=== PATIENT | male | born 1955 ===

== ENCOUNTER 2023-02-06 21:56 | Inpatient (IN) | payer MEDICARE, BC ==
[~2023-02-06] VITALS: Ht 170.2 cm; Wt 85.3 kg
[2023-02-06 22:00] VITALS: BP 126/68; TEMP 98.2; O2SAT 98
[2023-02-06] MEDS ORDERED: DEXA4TAB PO ×2 (22:54→23:41)
[2023-02-06] MEDS ORDERED: LEVE500T83 PO (22:54)
[2023-02-06] MEDS ORDERED: FURO20TA4 PO ×2 (22:54→23:41)
[2023-02-06] MEDS ORDERED: ENOX40DI SQ ×2 (22:54→23:41)
[2023-02-06] MEDS ORDERED: METO25TA3 PO ×2 (22:54→23:41)
[2023-02-06] MEDS ORDERED: OMEP40CA21 PO ×2 (22:54→23:41)
[2023-02-06] MEDS ORDERED: ACET-2030 PO ×2 (22:54→23:41)
[2023-02-06] MEDS ORDERED: LEVE500T20 PO (23:41)
[2023-02-07 08:15] VITALS: BP 151/82; TEMP 98.6; O2SAT 96
[2023-02-07] MEDS ORDERED: DOCU100C36 PO (09:03)
[2023-02-07] MEDS ORDERED: CALC600T35 PO (09:03)
[2023-02-07] MEDS ORDERED: APIX5TAB PO (09:03)
[2023-02-07] MEDS ORDERED: DOCUSATE SODIUM 100 MG CAPSULE PO PRN (13:45)
[2023-02-07] MEDS: ACETAMINOPHEN ES 500 MG TABLET PO SCH ×2 (14:00→21:18)
[2023-02-07] MEDS ORDERED: ACETAMINOPHEN ES 500 MG TABLET- SA PATIENTS-PAIN ONLY PO SCH (14:00)
[2023-02-07 15:22] VITALS: BP 145/90; TEMP 97.8; O2SAT 95
[2023-02-07] MEDS: CALCIUM CARBONATE 600 MG TABLET PO SCH (16:27)
[2023-02-07] MEDS: levETIRAcetam 500 MG TABLET PO SCH (16:29)
[2023-02-07] MEDS ORDERED: Medication Not On Formulary EA (Omeprazole 40 MG) PO SCH (16:30)
[2023-02-07] MEDS: DEXAMETHASONE 4 MG TABLET PO SCH (17:06)
[2023-02-07] MEDS: METOPROLOL SUCCINATE XL 25 MG TAB.SR.24H PO SCH (17:06)
[2023-02-07 20:25] VITALS: BP 127/81; TEMP 97.6; O2SAT 95
[2023-02-08] MEDS: PANTOPRAZOLE SODIUM 40 MG TABLET.DR PO SCH (06:42)
[2023-02-08] MEDS: ACETAMINOPHEN ES 500 MG TABLET PO SCH ×3 (06:42→22:00)
[2023-02-08 07:30] LABS: BASOPHILS % (AUTO) 0.1 % (0.0-2.0); EOSINOPHILS % (AUTO) 0.1 % (0.0-7.0); HEMATOCRIT 39.1 % (36.7-47.1); HEMOGLOBIN 13.2 g/dL (12.5-16.3); LYMPHOCYTES % (AUTO) 14.9 % (20.5-51.5); MEAN CORPUSCULAR HEMOGLOBIN 32.7 uug (23.8-33.4); MEAN CORPUSCULAR HGB CONC 34 g/dL (32.5-36.3); MEAN CORPUSCULAR VOLUME 96.8 fL (73.0-96.2); MONOCYTES # (AUTO) 0.3 K/uL (0.1-1.30); MONOCYTES % (AUTO) 4.5 % (0.0-11.0); NEUTROPHILS # (AUTO) 5.5 K/uL (1.8-8.9); NEUTROPHILS % (AUTO) 80.4 % (38.5-71.5); PLATELET COUNT (AUTO) 134 K/uL (152-348); RED BLOOD CELL COUNT(AUTO) 4.04 MIL/uL (4.06-5.63); RED CELL DISTRIBUTION WIDTH 18.9 % (12.1-16.2); WHITE BLOOD COUNT (AUTO) 6.8 K/uL (3.6-10.2)
[2023-02-08 07:42] LABS: DIFFERENTIAL COMMENT 1
[2023-02-08 07:53] LABS: CALCIUM 8.7 mg/dL (8.5-10.1); CARBON DIOXIDE 30 mmol/L (21-32); CHLORIDE 103 mmol/L (98-107); CREATININE 0.6 mg/dL (0.6-1.3); GLUCOSE 190 mg/dL (74-106); SODIUM SERUM 142 mmol/L (136-145); UREA NITROGEN, BLOOD 16 mg/dL (7-18)
[2023-02-08 08:00] VITALS: BP 144/92; TEMP 97.5; O2SAT 97
[2023-02-08] MEDS ORDERED: ENOXAPARIN SODIUM 40 MG/0.4 ML DISP.SYRIN SQ SCH (09:00)
[2023-02-08] MEDS: FUROSEMIDE 20 MG TABLET PO SCH (09:27)
[2023-02-08] MEDS: CALCIUM CARBONATE 600 MG TABLET PO SCH (09:27)
[2023-02-08] MEDS: DEXAMETHASONE 4 MG TABLET PO SCH ×2 (09:27→17:31)
[2023-02-08] MEDS: levETIRAcetam 500 MG TABLET PO SCH ×2 (09:28→17:31)
[2023-02-08] MEDS ORDERED: REMEDY ESSENTIAL ZINC PASTE 113 GM TOP PRN (10:45)
[2023-02-08] MEDS: ENOXAPARIN SODIUM 40 MG/0.4 ML DISP.SYRIN SQ SCH (12:55)
[2023-02-08] MEDS: MEDIHONEY= THERAHONEY 1.5 OZ TUBE TOP SCH (14:18)
[2023-02-08 15:46] VITALS: BP 123/88; TEMP 97.5; O2SAT 96
[2023-02-08] MEDS: METOPROLOL SUCCINATE XL 25 MG TAB.SR.24H PO SCH (17:30)
[2023-02-08 20:00] VITALS: BP 124/80; TEMP 97.4; O2SAT 93
[2023-02-08] MEDS: REMEDY ESSENTIAL ZINC PASTE 113 GM TOP SCH (21:38)
[2023-02-09] MEDS: ACETAMINOPHEN ES 500 MG TABLET PO SCH ×3 (06:00→21:21)
[2023-02-09 06:52] VITALS: BP 108/70; TEMP 97.1; O2SAT 92
[2023-02-09] MEDS: PANTOPRAZOLE SODIUM 40 MG TABLET.DR PO SCH (07:11)
[2023-02-09 07:27] VITALS: BP 146/87; TEMP 98.4; O2SAT 91
[2023-02-09] MEDS: DEXAMETHASONE 4 MG TABLET PO SCH ×2 (08:03→17:18)
[2023-02-09] MEDS: FUROSEMIDE 20 MG TABLET PO SCH (08:03)
[2023-02-09] MEDS: levETIRAcetam 500 MG TABLET PO SCH ×2 (08:03→16:24)
[2023-02-09] MEDS: CALCIUM CARBONATE 600 MG TABLET PO SCH (08:03)
[2023-02-09] MEDS: ENOXAPARIN SODIUM 40 MG/0.4 ML DISP.SYRIN SQ SCH (08:07)
[2023-02-09] MEDS: MEDIHONEY= THERAHONEY 1.5 OZ TUBE TOP SCH (08:20)
[2023-02-09] MEDS: REMEDY ESSENTIAL ZINC PASTE 113 GM TOP SCH ×2 (08:21→22:02)
[2023-02-09 15:19] VITALS: BP 128/82; TEMP 97.5; O2SAT 92
[2023-02-09] MEDS: METOPROLOL SUCCINATE XL 25 MG TAB.SR.24H PO SCH (17:18)
[2023-02-09 20:00] VITALS: BP 132/88; TEMP 98.1; O2SAT 98
[2023-02-10 04:00] VITALS: BP 132/88; TEMP 98.1; O2SAT 95
[2023-02-10] MEDS: PANTOPRAZOLE SODIUM 40 MG TABLET.DR PO SCH (06:07)
[2023-02-10] MEDS: ACETAMINOPHEN ES 500 MG TABLET PO SCH ×4 (06:07→21:49)
[2023-02-10 08:00] VITALS: BP 147/85; TEMP 97.5; O2SAT 95
[2023-02-10] MEDS: CALCIUM CARBONATE 600 MG TABLET PO SCH (08:46)
[2023-02-10] MEDS: FUROSEMIDE 20 MG TABLET PO SCH (08:46)
[2023-02-10] MEDS: DEXAMETHASONE 4 MG TABLET PO SCH ×2 (08:46→17:35)
[2023-02-10] MEDS: APIXABAN 5 MG TABLET PO SCH ×2 (08:48→16:49)
[2023-02-10] MEDS: MEDIHONEY= THERAHONEY 1.5 OZ TUBE TOP SCH (08:49)
[2023-02-10] MEDS: REMEDY ESSENTIAL ZINC PASTE 113 GM TOP SCH ×2 (09:05→21:47)
[2023-02-10 16:44] VITALS: BP 144/75; TEMP 97.7; O2SAT 97
[2023-02-10] MEDS: METOPROLOL SUCCINATE XL 25 MG TAB.SR.24H PO SCH (17:35)
[2023-02-10 20:00] VITALS: BP 127/88; TEMP 97.4; O2SAT 98
[2023-02-11 04:00] VITALS: BP 134/87; TEMP 97.4; O2SAT 94
[2023-02-11] MEDS: PANTOPRAZOLE SODIUM 40 MG TABLET.DR PO SCH (06:23)
[2023-02-11] MEDS: ACETAMINOPHEN ES 500 MG TABLET PO SCH ×3 (06:23→21:22)
[2023-02-11 08:00] VITALS: BP 143/74; TEMP 98; O2SAT 97
[2023-02-11] MEDS: FUROSEMIDE 20 MG TABLET PO SCH (09:04)
[2023-02-11] MEDS: DEXAMETHASONE 4 MG TABLET PO SCH ×2 (09:04→17:01)
[2023-02-11] MEDS: CALCIUM CARBONATE 600 MG TABLET PO SCH (09:04)
[2023-02-11] MEDS: APIXABAN 5 MG TABLET PO SCH ×2 (09:05→16:54)
[2023-02-11] MEDS: MEDIHONEY= THERAHONEY 1.5 OZ TUBE TOP SCH (09:06)
[2023-02-11] MEDS: REMEDY ESSENTIAL ZINC PASTE 113 GM TOP SCH ×2 (09:06→21:27)
[2023-02-11 16:00] VITALS: BP 122/76; TEMP 97.6; O2SAT 97
[2023-02-11] MEDS: METOPROLOL SUCCINATE XL 25 MG TAB.SR.24H PO SCH (17:01)
[2023-02-11 20:00] VITALS: BP 142/88; TEMP 97.7; O2SAT 95
[2023-02-12 04:00] VITALS: BP 134/93; TEMP 97.6; O2SAT 96
[2023-02-12] MEDS: PANTOPRAZOLE SODIUM 40 MG TABLET.DR PO SCH (06:08)
[2023-02-12] MEDS: ACETAMINOPHEN ES 500 MG TABLET PO SCH ×3 (06:08→22:05)
[2023-02-12 08:00] VITALS: BP 149/92; TEMP 97.7; O2SAT 96
[2023-02-12] MEDS: CALCIUM CARBONATE 600 MG TABLET PO SCH (08:52)
[2023-02-12] MEDS: APIXABAN 5 MG TABLET PO SCH ×2 (08:53→17:23)
[2023-02-12] MEDS: FUROSEMIDE 20 MG TABLET PO SCH (08:55)
[2023-02-12] MEDS: DEXAMETHASONE 4 MG TABLET PO SCH ×2 (08:55→17:24)
[2023-02-12] MEDS: REMEDY ESSENTIAL ZINC PASTE 113 GM TOP SCH ×2 (08:55→22:12)
[2023-02-12] MEDS: MEDIHONEY= THERAHONEY 1.5 OZ TUBE TOP SCH (09:06)
[2023-02-12 10:00] VITALS: BP 132/78
[2023-02-12 15:20] VITALS: BP 139/81
[2023-02-12 16:00] VITALS: BP 104/65; TEMP 97.7; O2SAT 95
[2023-02-12] MEDS: METOPROLOL SUCCINATE XL 25 MG TAB.SR.24H PO SCH (17:23)
[2023-02-12 20:00] VITALS: BP 133/88; TEMP 98; O2SAT 97
[2023-02-13 04:00] VITALS: BP 137/97; TEMP 98.2; O2SAT 95
[2023-02-13] MEDS: PANTOPRAZOLE SODIUM 40 MG TABLET.DR PO SCH (06:10)
[2023-02-13] MEDS: ACETAMINOPHEN ES 500 MG TABLET PO SCH ×3 (06:10→22:27)
[2023-02-13 08:22] VITALS: BP 138/90; TEMP 98.1; O2SAT 96
[2023-02-13] MEDS: FUROSEMIDE 20 MG TABLET PO SCH (08:40)
[2023-02-13] MEDS: APIXABAN 5 MG TABLET PO SCH ×2 (08:40→17:13)
[2023-02-13] MEDS: CALCIUM CARBONATE 600 MG TABLET PO SCH (08:41)
[2023-02-13] MEDS: DEXAMETHASONE 4 MG TABLET PO SCH ×2 (08:41→17:12)
[2023-02-13] MEDS: MEDIHONEY= THERAHONEY 1.5 OZ TUBE TOP SCH (08:41)
[2023-02-13] MEDS: REMEDY ESSENTIAL ZINC PASTE 113 GM TOP SCH ×2 (08:41→21:00)
[2023-02-13 16:16] VITALS: BP 138/86; TEMP 98; O2SAT 97
[2023-02-13] MEDS: METOPROLOL SUCCINATE XL 25 MG TAB.SR.24H PO SCH (17:12)
[2023-02-13 20:07] VITALS: BP 125/72; TEMP 97.9; O2SAT 95
[2023-02-14 05:18] VITALS: BP 133/78; TEMP 97.7; O2SAT 93
[2023-02-14] MEDS: PANTOPRAZOLE SODIUM 40 MG TABLET.DR PO SCH (06:06)
[2023-02-14] MEDS: ACETAMINOPHEN ES 500 MG TABLET PO SCH ×3 (06:07→22:09)
[2023-02-14 08:20] VITALS: BP 151/89; TEMP 97.5; O2SAT 96
[2023-02-14] MEDS: CALCIUM CARBONATE 600 MG TABLET PO SCH (09:48)
[2023-02-14] MEDS: FUROSEMIDE 20 MG TABLET PO SCH (09:49)
[2023-02-14] MEDS: APIXABAN 5 MG TABLET PO SCH ×2 (09:50→17:06)
[2023-02-14] MEDS: DEXAMETHASONE 4 MG TABLET PO SCH ×2 (09:51→17:06)
[2023-02-14] MEDS: MEDIHONEY= THERAHONEY 1.5 OZ TUBE TOP SCH (09:52)
[2023-02-14] MEDS: REMEDY ESSENTIAL ZINC PASTE 113 GM TOP SCH ×2 (09:52→21:17)
[2023-02-14 16:32] VITALS: BP 135/88; TEMP 97.8; O2SAT 96
[2023-02-14] MEDS: METOPROLOL SUCCINATE XL 25 MG TAB.SR.24H PO SCH (17:09)
[2023-02-14 20:10] VITALS: BP 145/92; TEMP 97.6; O2SAT 96
[2023-02-15 04:18] VITALS: BP 134/80; TEMP 97.5; O2SAT 96
[2023-02-15] MEDS ORDERED: ACETAMINOPHEN ES 500 MG TABLET ONE (06:22)
[2023-02-15] MEDS: ACETAMINOPHEN ES 500 MG TABLET PO SCH ×3 (06:25→22:05)
[2023-02-15] MEDS: PANTOPRAZOLE SODIUM 40 MG TABLET.DR PO SCH (06:31)
[2023-02-15 08:00] VITALS: BP 154/87; TEMP 97.4; O2SAT 94
[2023-02-15] MEDS: DEXAMETHASONE 4 MG TABLET PO SCH ×2 (08:31→17:00)
[2023-02-15] MEDS: CALCIUM CARBONATE 600 MG TABLET PO SCH (08:31)
[2023-02-15] MEDS: FUROSEMIDE 20 MG TABLET PO SCH (08:31)
[2023-02-15] MEDS: APIXABAN 5 MG TABLET PO SCH ×2 (08:32→16:53)
[2023-02-15] MEDS: REMEDY ESSENTIAL ZINC PASTE 113 GM TOP SCH ×2 (08:32→20:58)
[2023-02-15] MEDS: MEDIHONEY= THERAHONEY 1.5 OZ TUBE TOP SCH (08:32)
[2023-02-15 16:00] VITALS: BP 134/82; TEMP 98.8; O2SAT 95
[2023-02-15] MEDS: METOPROLOL SUCCINATE XL 25 MG TAB.SR.24H PO SCH (17:00)
[2023-02-16 00:20] VITALS: BP 140/88; TEMP 97.1; O2SAT 95
[2023-02-16 04:20] VITALS: BP 121/83; TEMP 97; O2SAT 99
[2023-02-16] MEDS: ACETAMINOPHEN ES 500 MG TABLET PO SCH ×3 (06:00→22:26)
[2023-02-16] MEDS: PANTOPRAZOLE SODIUM 40 MG TABLET.DR PO SCH (07:12)
[2023-02-16 07:39] VITALS: BP 155/83; TEMP 98.4; O2SAT 93
[2023-02-16] MEDS: APIXABAN 5 MG TABLET PO SCH ×2 (09:10→17:10)
[2023-02-16] MEDS: DEXAMETHASONE 4 MG TABLET PO SCH (09:11)
[2023-02-16] MEDS: CALCIUM CARBONATE 600 MG TABLET PO SCH (09:11)
[2023-02-16] MEDS: FUROSEMIDE 20 MG TABLET PO SCH (09:11)
[2023-02-16] MEDS: REMEDY ESSENTIAL ZINC PASTE 113 GM TOP SCH ×2 (09:12→20:51)
[2023-02-16] MEDS: MEDIHONEY= THERAHONEY 1.5 OZ TUBE TOP SCH (09:14)
[2023-02-16 15:09] VITALS: BP 118/85; TEMP 98.2; O2SAT 96
[2023-02-16] MEDS: DEXAMETHASONE 1 MG TABLET PO SCH (17:09)
[2023-02-16] MEDS: METOPROLOL SUCCINATE XL 25 MG TAB.SR.24H PO SCH (17:11)
[2023-02-16 20:11] VITALS: BP 137/78; TEMP 98.4; O2SAT 96
[2023-02-17 04:17] VITALS: BP 123/76; TEMP 98.4; O2SAT 96
[2023-02-17] MEDS: PANTOPRAZOLE SODIUM 40 MG TABLET.DR PO SCH (06:04)
[2023-02-17] MEDS: ACETAMINOPHEN ES 500 MG TABLET PO SCH (06:04)
[2023-02-17 07:19] LABS: BASOPHILS % (AUTO) 0.1 % (0.0-2.0); EOSINOPHILS % (AUTO) 0.1 % (0.0-7.0); HEMATOCRIT 39.1 % (36.7-47.1); HEMOGLOBIN 13.3 g/dL (12.5-16.3); LYMPHOCYTES # (AUTO) 1.2 K/uL (0.8-4.8); LYMPHOCYTES % (AUTO) 15.1 % (20.5-51.5); MEAN CORPUSCULAR HEMOGLOBIN 32.4 uug (23.8-33.4); MEAN CORPUSCULAR HGB CONC 34 g/dL (32.5-36.3); MEAN CORPUSCULAR VOLUME 94.9 fL (73.0-96.2); MONOCYTES # (AUTO) 0.4 K/uL (0.1-1.30); MONOCYTES % (AUTO) 5.6 % (0.0-11.0); NEUTROPHILS # (AUTO) 6.3 K/uL (1.8-8.9); NEUTROPHILS % (AUTO) 79.1 % (38.5-71.5); PLATELET COUNT (AUTO) 188 K/uL (152-348); RED BLOOD CELL COUNT(AUTO) 4.12 MIL/uL (4.06-5.63); RED CELL DISTRIBUTION WIDTH 18.6 % (12.1-16.2); WHITE BLOOD COUNT (AUTO) 7.9 K/uL (3.6-10.2)
[2023-02-17 07:32] LABS: DIFFERENTIAL COMMENT 1
[2023-02-17 08:00] VITALS: BP 144/94; TEMP 98.1; O2SAT 98
[2023-02-17 08:22] LABS: ALBUMIN 2.9 g/dL (3.4-5.0); BILIRUBIN,TOTAL 0.5 mg/dL (0.2-1.0); CALCIUM 9.1 mg/dL (8.5-10.1); CREATININE 0.8 mg/dL (0.6-1.3); MAGNESIUM 2.3 mg/dL (1.8-2.4); PHOSPHOROUS 3.7 mg/dL (2.5-4.9); POTASSIUM 4.1 mmol/L (3.5-5.1); TOTAL PROTEIN, SERUM 5.7 g/dL (6.4-8.2)
[2023-02-17] MEDS: CALCIUM CARBONATE 600 MG TABLET PO SCH (08:29)
[2023-02-17] MEDS: APIXABAN 5 MG TABLET PO SCH ×2 (08:30→17:08)
[2023-02-17] MEDS: FUROSEMIDE 20 MG TABLET PO SCH (08:30)
[2023-02-17] MEDS: DEXAMETHASONE 1 MG TABLET PO SCH ×2 (08:31→17:07)
[2023-02-17] MEDS: REMEDY ESSENTIAL ZINC PASTE 113 GM TOP SCH ×2 (08:32→21:16)
[2023-02-17] MEDS: MEDIHONEY= THERAHONEY 1.5 OZ TUBE TOP SCH (08:33)
[2023-02-17] MEDS ORDERED: ACETAMINOPHEN ES 500 MG TABLET PO PRN (09:15)
[2023-02-17 10:30] LABS: THYROID STIMULATING HORMONE 0.962 mIU/mL (0.358-3.740)
[2023-02-17 11:32] VITALS: BP 119/74
[2023-02-17 16:11] VITALS: BP 123/78; TEMP 98.1; O2SAT 98
[2023-02-17] MEDS: METOPROLOL SUCCINATE XL 25 MG TAB.SR.24H PO SCH (17:07)
[2023-02-17 20:00] VITALS: BP 137/89; TEMP 98; O2SAT 95
[2023-02-17] MEDS ORDERED: DEXTROSE 50% 50 ML DISP.SYRIN IV PRN (21:30)
[2023-02-18 04:00] VITALS: BP 142/95; TEMP 97.5; O2SAT 93
[2023-02-18 04:52] VITALS: BP 142/95; TEMP 97.5; O2SAT 93
[2023-02-18] MEDS: PANTOPRAZOLE SODIUM 40 MG TABLET.DR PO SCH (06:19)
[2023-02-18] MEDS: BLOOD SUGAR DIAGNOSTIC 1 EACH STRIP VI SCH ×4 (06:39→21:12)
[2023-02-18 08:00] VITALS: BP 136/92; TEMP 98; O2SAT 98
[2023-02-18] MEDS: INSULIN REGULAR, HUMAN 300 UNIT/3 ML VIAL SQ PRN ×4 (08:08→21:32)
[2023-02-18] MEDS: CALCIUM CARBONATE 600 MG TABLET PO SCH (08:09)
[2023-02-18] MEDS: APIXABAN 5 MG TABLET PO SCH ×2 (08:09→16:18)
[2023-02-18] MEDS: FUROSEMIDE 20 MG TABLET PO SCH (08:10)
[2023-02-18] MEDS: MEDIHONEY= THERAHONEY 1.5 OZ TUBE TOP SCH (08:10)
[2023-02-18] MEDS: REMEDY ESSENTIAL ZINC PASTE 113 GM TOP SCH ×2 (08:11→21:13)
[2023-02-18] MEDS: DEXAMETHASONE 1 MG TABLET PO SCH ×2 (08:54→17:21)
[2023-02-18 16:00] VITALS: BP 142/101; TEMP 98.4; O2SAT 97
[2023-02-18] MEDS: METOPROLOL SUCCINATE XL 25 MG TAB.SR.24H PO SCH (18:27)
[2023-02-18 20:00] VITALS: BP 120/72; TEMP 98.5; O2SAT 95
[2023-02-18] MEDS: ATORVASTATIN 20 MG TABLET PO SCH (21:12)
[2023-02-18] MEDS ORDERED: INSULIN GLARGINE,HUM 300 UNITS/3 ML CARTRIDGE SQ SCH (22:30)
[2023-02-19 04:00] VITALS: BP 146/81; TEMP 98.2; O2SAT 96
[2023-02-19] MEDS: PANTOPRAZOLE SODIUM 40 MG TABLET.DR PO SCH (06:24)
[2023-02-19] MEDS: BLOOD SUGAR DIAGNOSTIC 1 EACH STRIP VI SCH ×4 (06:40→20:24)
[2023-02-19 07:58] VITALS: BP 146/90; TEMP 98.6; O2SAT 98
[2023-02-19] MEDS: DEXAMETHASONE 1 MG TABLET PO SCH ×2 (09:56→17:26)
[2023-02-19] MEDS: FUROSEMIDE 20 MG TABLET PO SCH (09:56)
[2023-02-19] MEDS: CALCIUM CARBONATE 600 MG TABLET PO SCH (09:56)
[2023-02-19] MEDS: APIXABAN 5 MG TABLET PO SCH ×2 (09:57→17:28)
[2023-02-19] MEDS: REMEDY ESSENTIAL ZINC PASTE 113 GM TOP SCH ×2 (09:58→20:31)
[2023-02-19] MEDS: MEDIHONEY= THERAHONEY 1.5 OZ TUBE TOP SCH (09:58)
[2023-02-19] MEDS: INSULIN REGULAR, HUMAN 300 UNIT/3 ML VIAL SQ PRN ×3 (12:07→20:26)
[2023-02-19 15:07] VITALS: BP 147/100; TEMP 98.2; O2SAT 98
[2023-02-19] MEDS: METOPROLOL SUCCINATE XL 25 MG TAB.SR.24H PO SCH (17:29)
[2023-02-19 20:00] VITALS: BP 133/95; TEMP 98.7; O2SAT 96
[2023-02-19] MEDS: ATORVASTATIN 20 MG TABLET PO SCH (20:24)
[2023-02-19] MEDS ORDERED: INSULIN GLARGINE,HUM 300 UNITS/3 ML CARTRIDGE SQ SCH (21:00)
[2023-02-20 04:00] VITALS: BP 109/69; TEMP 98.6; O2SAT 95
[2023-02-20] MEDS: BLOOD SUGAR DIAGNOSTIC 1 EACH STRIP VI SCH ×4 (06:07→21:07)
[2023-02-20] MEDS: PANTOPRAZOLE SODIUM 40 MG TABLET.DR PO SCH (06:18)
[2023-02-20 07:27] LABS: ALBUMIN 2.9 g/dL (3.4-5.0); BILIRUBIN,TOTAL 0.7 mg/dL (0.2-1.0); CALCIUM 9.1 mg/dL (8.5-10.1); CREATININE 0.9 mg/dL (0.6-1.3); MAGNESIUM 2.4 mg/dL (1.8-2.4); PHOSPHOROUS 3.7 mg/dL (2.5-4.9); POTASSIUM 3.8 mmol/L (3.5-5.1); TOTAL PROTEIN, SERUM 5.7 g/dL (6.4-8.2)
[2023-02-20 07:39] LABS: BASOPHILS % (AUTO) 0.1 % (0.0-2.0); DIFFERENTIAL COMMENT 0; EOSINOPHILS % (AUTO) 0.1 % (0.0-7.0); HEMATOCRIT 42.6 % (36.7-47.1); HEMOGLOBIN 14.2 g/dL (12.5-16.3); LYMPHOCYTES # (AUTO) 1.3 K/uL (0.8-4.8); LYMPHOCYTES % (AUTO) 13.6 % (20.5-51.5); MEAN CORPUSCULAR HEMOGLOBIN 31.9 uug (23.8-33.4); MEAN CORPUSCULAR HGB CONC 33 g/dL (32.5-36.3); MEAN CORPUSCULAR VOLUME 95.3 fL (73.0-96.2); MONOCYTES # (AUTO) 0.6 K/uL (0.1-1.30); MONOCYTES % (AUTO) 6.4 % (0.0-11.0); NEUTROPHILS # (AUTO) 7.7 K/uL (1.8-8.9); NEUTROPHILS % (AUTO) 79.8 % (38.5-71.5); PLATELET COUNT (AUTO) 164 K/uL (152-348); RED BLOOD CELL COUNT(AUTO) 4.47 MIL/uL (4.06-5.63); RED CELL DISTRIBUTION WIDTH 18.7 % (12.1-16.2); WHITE BLOOD COUNT (AUTO) 9.7 K/uL (3.6-10.2)
[2023-02-20] MEDS: INSULIN REGULAR, HUMAN 300 UNIT/3 ML VIAL SQ PRN ×4 (08:35→21:14)
[2023-02-20] MEDS: DEXAMETHASONE 1 MG TABLET PO SCH ×2 (08:36→17:04)
[2023-02-20] MEDS: CALCIUM CARBONATE 600 MG TABLET PO SCH (08:36)
[2023-02-20] MEDS: FUROSEMIDE 20 MG TABLET PO SCH (08:36)
[2023-02-20] MEDS: APIXABAN 5 MG TABLET PO SCH ×2 (08:36→17:04)
[2023-02-20] MEDS: MEDIHONEY= THERAHONEY 1.5 OZ TUBE TOP SCH (08:39)
[2023-02-20] MEDS: REMEDY ESSENTIAL ZINC PASTE 113 GM TOP SCH ×2 (08:39→21:07)
[2023-02-20 10:00] VITALS: TEMP 97.2
[2023-02-20] MEDS: ONDANSETRON HCL 4 MG TABLET PO PRN (15:50)
[2023-02-20 16:15] VITALS: TEMP 97.2
[2023-02-20] MEDS: METOPROLOL TARTRATE 25 MG TABLET PO SCH (18:36)
[2023-02-20 20:15] VITALS: BP 163/94; TEMP 98.3; O2SAT 92
[2023-02-20] MEDS: ATORVASTATIN 20 MG TABLET PO SCH (20:57)
[2023-02-20] MEDS: INSULIN GLARGINE,HUM 300 UNITS/3 ML CARTRIDGE SQ SCH (21:05)
[2023-02-21 04:50] VITALS: BP 151/95; TEMP 98.3; O2SAT 94
[2023-02-21] MEDS: PANTOPRAZOLE SODIUM 40 MG TABLET.DR PO SCH (06:26)
[2023-02-21] MEDS: BLOOD SUGAR DIAGNOSTIC 1 EACH STRIP VI SCH ×4 (06:43→20:54)
[2023-02-21] MEDS: FUROSEMIDE 20 MG TABLET PO SCH (09:07)
[2023-02-21] MEDS: CALCIUM CARBONATE 600 MG TABLET PO SCH (09:07)
[2023-02-21] MEDS: APIXABAN 5 MG TABLET PO SCH ×2 (09:07→16:34)
[2023-02-21] MEDS: DEXAMETHASONE 1 MG TABLET PO SCH ×2 (09:08→16:32)
[2023-02-21] MEDS: MEDIHONEY= THERAHONEY 1.5 OZ TUBE TOP SCH (09:14)
[2023-02-21] MEDS: REMEDY ESSENTIAL ZINC PASTE 113 GM TOP SCH ×2 (09:15→20:54)
[2023-02-21] MEDS: INSULIN REGULAR, HUMAN 300 UNIT/3 ML VIAL SQ PRN ×3 (11:40→20:58)
[2023-02-21 16:00] VITALS: BP_SYST 102; BP_SYST 142; BP_DIAS 63; BP_DIAS 92; TEMP 97.8; O2SAT 95
[2023-02-21] MEDS: METOPROLOL TARTRATE 25 MG TABLET PO SCH (17:04)
[2023-02-21 20:00] VITALS: BP 131/90; TEMP 98.2; O2SAT 96
[2023-02-21] MEDS: ATORVASTATIN 20 MG TABLET PO SCH (20:43)
[2023-02-21] MEDS: INSULIN GLARGINE,HUM 300 UNITS/3 ML CARTRIDGE SQ SCH (20:50)
[2023-02-21 23:46] VITALS: BP 132/103; TEMP 98.2; O2SAT 98
[2023-02-22] VITALS (7 sets, daily range): BP systolic 123–150; BP diastolic 62–103; TEMP 97.6–98.6; O2SAT 94–98
[2023-02-22] MEDS: hydrALAZINE HCL 25 MG TABLET PO PRN ×2 (04:58→21:13)
[2023-02-22] MEDS: PANTOPRAZOLE SODIUM 40 MG TABLET.DR PO SCH (06:38)
[2023-02-22] MEDS: BLOOD SUGAR DIAGNOSTIC 1 EACH STRIP VI SCH ×4 (06:44→21:13)
[2023-02-22] MEDS: DEXAMETHASONE 1 MG TABLET PO SCH ×2 (09:03→17:13)
[2023-02-22] MEDS: FUROSEMIDE 20 MG TABLET PO SCH (09:03)
[2023-02-22] MEDS: CALCIUM CARBONATE 600 MG TABLET PO SCH (09:04)
[2023-02-22] MEDS: APIXABAN 5 MG TABLET PO SCH ×2 (09:09→17:12)
[2023-02-22] MEDS: MEDIHONEY= THERAHONEY 1.5 OZ TUBE TOP SCH (09:15)
[2023-02-22] MEDS: REMEDY ESSENTIAL ZINC PASTE 113 GM TOP SCH ×2 (09:16→21:16)
[2023-02-22] MEDS: INSULIN REGULAR, HUMAN 300 UNIT/3 ML VIAL SQ PRN ×4 (09:28→21:15)
[2023-02-22] MEDS: PROTEIN SUPPLEMENT (PROSTAT) 30 ML LIQUID PO SCH (17:13)
[2023-02-22] MEDS: METOPROLOL TARTRATE 25 MG TABLET PO SCH (17:18)
[2023-02-22] MEDS: ATORVASTATIN 20 MG TABLET PO SCH (21:12)
[2023-02-22] MEDS: INSULIN GLARGINE,HUM 300 UNITS/3 ML CARTRIDGE SQ SCH (21:16)
[2023-02-23 04:20] VITALS: BP 143/96; TEMP 98.4; O2SAT 92
[2023-02-23] MEDS: PANTOPRAZOLE SODIUM 40 MG TABLET.DR PO SCH (06:24)
[2023-02-23] MEDS: BLOOD SUGAR DIAGNOSTIC 1 EACH STRIP VI SCH ×4 (07:28→20:40)
[2023-02-23 07:52] VITALS: BP 137/86; TEMP 97.6; O2SAT 95
[2023-02-23] MEDS: DEXAMETHASONE 1 MG TABLET PO SCH ×2 (08:23→17:27)
[2023-02-23] MEDS: CALCIUM CARBONATE 600 MG TABLET PO SCH (08:24)
[2023-02-23] MEDS: INSULIN REGULAR, HUMAN 300 UNIT/3 ML VIAL SQ PRN ×4 (08:24→21:02)
[2023-02-23] MEDS: APIXABAN 5 MG TABLET PO SCH ×2 (08:24→17:28)
[2023-02-23] MEDS: FUROSEMIDE 20 MG TABLET PO SCH (08:24)
[2023-02-23] MEDS: REMEDY ESSENTIAL ZINC PASTE 113 GM TOP SCH ×2 (08:25→20:42)
[2023-02-23] MEDS: PROTEIN SUPPLEMENT (PROSTAT) 30 ML LIQUID PO SCH ×2 (08:25→17:28)
[2023-02-23] MEDS: MEDIHONEY= THERAHONEY 1.5 OZ TUBE TOP SCH (08:26)
[2023-02-23] MEDS ORDERED: BISACODYL 10 MG SUPP.RECT RC ONE (13:45)
[2023-02-23 15:52] VITALS: BP 119/86; TEMP 97.6; O2SAT 97
[2023-02-23] MEDS: METOPROLOL TARTRATE 25 MG TABLET PO SCH (17:27)
[2023-02-23 20:11] VITALS: BP 142/88; TEMP 98.2; O2SAT 96
[2023-02-23] MEDS: ATORVASTATIN 20 MG TABLET PO SCH ×2 (20:34→20:58)
[2023-02-23] MEDS: INSULIN GLARGINE,HUM 300 UNITS/3 ML CARTRIDGE SQ SCH (21:03)
[2023-02-24 04:10] VITALS: BP 153/90; TEMP 97.4; O2SAT 97
[2023-02-24] MEDS: PANTOPRAZOLE SODIUM 40 MG TABLET.DR PO SCH (06:37)
[2023-02-24] MEDS: BLOOD SUGAR DIAGNOSTIC 1 EACH STRIP VI SCH ×4 (06:46→20:27)
[2023-02-24 08:00] VITALS: BP 126/87; TEMP 97.5; O2SAT 97
[2023-02-24] MEDS: PROTEIN SUPPLEMENT (PROSTAT) 30 ML LIQUID PO SCH ×2 (08:49→16:39)
[2023-02-24] MEDS: DEXAMETHASONE 1 MG TABLET PO SCH ×2 (09:47→17:23)
[2023-02-24] MEDS: CALCIUM CARBONATE 600 MG TABLET PO SCH (09:47)
[2023-02-24] MEDS: APIXABAN 5 MG TABLET PO SCH ×2 (09:49→16:56)
[2023-02-24] MEDS: FUROSEMIDE 20 MG TABLET PO SCH (09:49)
[2023-02-24 11:51] VITALS: BP 147/89; TEMP 97.5; O2SAT 95
[2023-02-24 11:51] LABS: *BILIRUBIN,URIN NEGATIVE (NEGATIVE); *CLARITY,URINE CLEAR (CLEAR); *COLOR,URINE YELLOW (YELLOW); *KETONES,URINE NEGATIVE (NEGATIVE); *PROTEIN,URINE NEGATIVE (NEGATIVE); *UROBILINOGEN,URINE 0.2 E.U./dl (NORMAL); LEUKOCYTE ESTERASE ,URINE NEGATIVE (NEGATIVE); NITRITE, URINE NEGATIVE (NEGATIVE); UGLUCOSE NEGATIVE (NEGATIVE)
[2023-02-24 11:57] LABS: *BLOOD, URINE TRACE (NEGATIVE)
[2023-02-24 12:10] LABS: BASOPHILS % (AUTO) 0.3 % (0.0-2.0); DIFFERENTIAL COMMENT 0; EOSINOPHILS % (AUTO) 0.1 % (0.0-7.0); HEMATOCRIT 42.2 % (36.7-47.1); HEMOGLOBIN 14.3 g/dL (12.5-16.3); LYMPHOCYTES % (AUTO) 12.7 % (20.5-51.5); MEAN CORPUSCULAR HEMOGLOBIN 31.9 uug (23.8-33.4); MEAN CORPUSCULAR HGB CONC 34 g/dL (32.5-36.3); MEAN CORPUSCULAR VOLUME 94.2 fL (73.0-96.2); MONOCYTES # (AUTO) 0.7 K/uL (0.1-1.30); MONOCYTES % (AUTO) 8.2 % (0.0-11.0); NEUTROPHILS # (AUTO) 6.4 K/uL (1.8-8.9); NEUTROPHILS % (AUTO) 78.7 % (38.5-71.5); PLATELET COUNT (AUTO) 156 K/uL (152-348); RED BLOOD CELL COUNT(AUTO) 4.48 MIL/uL (4.06-5.63); RED CELL DISTRIBUTION WIDTH 18.5 % (12.1-16.2); WHITE BLOOD COUNT (AUTO) 8.1 K/uL (3.6-10.2)
[2023-02-24 12:12] LABS: CALCIUM 8.8 mg/dL (8.5-10.1); CREATININE 0.8 mg/dL (0.6-1.3); POTASSIUM 3.2 mmol/L (3.5-5.1)
[2023-02-24 12:18] LABS: ALBUMIN 2.8 g/dL (3.4-5.0); TOTAL PROTEIN, SERUM 5.8 g/dL (6.4-8.2)
[2023-02-24] MEDS: hydrALAZINE HCL 25 MG TABLET PO PRN (12:41)
[2023-02-24] MEDS: INSULIN REGULAR, HUMAN 300 UNIT/3 ML VIAL SQ PRN ×2 (12:45→20:28)
[2023-02-24] MEDS ORDERED: POTASSIUM CHLORIDE 20 MEQ POWDER PACKET PO ONE (13:45)
[2023-02-24 15:10] LABS: BACTERIA,URINE FEW /HPF (NONE SEEN); RBC,URINE 0-3 /HPF (0-3); SQUAMOUS EPITHELIAL CELL,UR FEW /HPF (NONE SEEN); WBC,URINE 0-3 /HPF (0-3); YEAST,URINE FEW /HPF (NONE SEEN)
[2023-02-24] MEDS ORDERED: BISACODYL 10 MG SUPP.RECT RC ONE (15:15)
[2023-02-24 16:00] VITALS: BP 118/73; TEMP 97.5; O2SAT 95
[2023-02-24] MEDS: MEDIHONEY= THERAHONEY 1.5 OZ TUBE TOP SCH (16:39)
[2023-02-24] MEDS: REMEDY ESSENTIAL ZINC PASTE 113 GM TOP SCH ×2 (16:39→20:28)
[2023-02-24] MEDS: METOPROLOL TARTRATE 25 MG TABLET PO SCH (17:24)
[2023-02-24] MEDS: DOCUSATE SODIUM 100 MG CAPSULE PO SCH (17:24)
[2023-02-24 20:00] VITALS: BP 142/97; TEMP 97.5; O2SAT 96
[2023-02-24] MEDS: ATORVASTATIN 20 MG TABLET PO SCH (20:28)
[2023-02-24] MEDS: INSULIN GLARGINE,HUM 300 UNITS/3 ML CARTRIDGE SQ SCH (20:29)
[2023-02-24 22:00] VITALS: BP 121/82
[2023-02-25 04:00] VITALS: BP 138/81; TEMP 97.1; O2SAT 68
[2023-02-25] MEDS: PANTOPRAZOLE SODIUM 40 MG TABLET.DR PO SCH (06:03)
[2023-02-25] MEDS: BLOOD SUGAR DIAGNOSTIC 1 EACH STRIP VI SCH ×2 (06:31→11:33)
[2023-02-25 08:00] VITALS: BP 145/86; TEMP 97.8; O2SAT 96
[2023-02-25] MEDS: CALCIUM CARBONATE 600 MG TABLET PO SCH (08:53)
[2023-02-25] MEDS: DOCUSATE SODIUM 100 MG CAPSULE PO SCH (08:53)
[2023-02-25] MEDS: FUROSEMIDE 20 MG TABLET PO SCH (08:53)
[2023-02-25] MEDS: APIXABAN 5 MG TABLET PO SCH (08:56)
[2023-02-25] MEDS: INSULIN REGULAR, HUMAN 300 UNIT/3 ML VIAL SQ PRN ×2 (08:59→12:11)
[2023-02-25] MEDS: REMEDY ESSENTIAL ZINC PASTE 113 GM TOP SCH (09:00)
[2023-02-25] MEDS: MEDIHONEY= THERAHONEY 1.5 OZ TUBE TOP SCH (09:00)
[2023-02-25] MEDS: PROTEIN SUPPLEMENT (PROSTAT) 30 ML LIQUID PO SCH (09:05)
[2023-02-25] MEDS: DEXAMETHASONE 1 MG TABLET PO SCH (09:05)
[2023-02-25] MEDS: ONDANSETRON HCL 4 MG TABLET PO PRN (09:31)
[2023-02-25] MEDS: hydrALAZINE HCL 25 MG TABLET PO PRN (09:31)
[2023-02-25] MEDS ORDERED: FLEET ENEMA 133 ML BOTTLE RC ONE (09:45)
[2023-02-25] MEDS ORDERED: INSU3INS6 SQ (14:46)
[2023-02-25] MEDS ORDERED: LACT10SO58 PO (14:46)
[2023-02-25] MEDS ORDERED: PANT40TA49 PO (14:46)
[2023-02-25] MEDS ORDERED: INSU200I SQ (14:46)
[2023-02-25] MEDS ORDERED: POLY119P2 PO (14:46)
[2023-02-25] MEDS ORDERED: ATOR20TA PO (14:46)
[2023-02-25] MEDS ORDERED: DEXA1TAB2 PO (14:46)
[2023-02-25 15:12] VITALS: BP 137/94; TEMP 97.9; O2SAT 96
== END 2023-02-25 16:15 | disposition home health service (06) | DRG 939 ==
PROVIDERS: ADMIT Physical Medicine & Rehabilitation Pain Medicine; ATTEND Physical Medicine & Rehabilitation Pain Medicine
PROC: 0JB70ZZ Excision of Back Subcutaneous Tissue and Fascia, Open Approach (ICD-10-PCS; principal; 2023-02-12)
DX: Z48.3 Aftercare following surgery for neoplasm (principal); G93.6 Cerebral edema; L89.153 Pressure ulcer of sacral region, stage 3; C71.1 Malignant neoplasm of frontal lobe; E87.1 Hypo-osmolality and hyponatremia; G93.40 Encephalopathy, unspecified; R47.01 Aphasia; I10 Essential (primary) hypertension; I25.10 Atherosclerotic heart disease of native coronary artery without angina pectoris; Z86.718 Personal history of other venous thrombosis and embolism; Z86.711 Personal history of pulmonary embolism; D69.6 Thrombocytopenia, unspecified; E11.65 Type 2 diabetes mellitus with hyperglycemia; E66.9 Obesity, unspecified; Z68.29 Body mass index [BMI] 29.0-29.9, adult; E78.5 Hyperlipidemia, unspecified; E87.6 Hypokalemia; G93.89 Other specified disorders of brain; K21.9 Gastro-esophageal reflux disease without esophagitis; R53.1 Weakness; Z79.01 Long term (current) use of anticoagulants; R26.89 Other abnormalities of gait and mobility
CPT/HCPCS: 36415; 70450; 71045; 74018; 83550; 83735; 84100; 84443; 85025; 93005; 97535-GO-CO; A4663; A6209; A6213; A9150; C1758; J1650; J1815; J8540; Q0162